=== PATIENT | male | born 1970 | race Hispanic/Latino ===

== ENCOUNTER 2022-07-11 15:52 | Emergency (ER) | payer SELFPAY ==
[2022-07-11 16:38] LABS: Absolute Lymphocytes (CBC) 0.7 K/uL (0.7-4.9); Hematocrit 43.8 % (39.6-49.0); Lymphocytes % 8.5 % (15.3-44.8); MCV 98.7 fL (80-100); MPV 7.9 fL (7.6-11.3); RBC Red Blood Cell Count 4.44 M/uL (4.33-5.43)
[2022-07-11 17:17] LABS: Albumin 3.8 g/dL (3.4-5.0); Bilirubin Total 0.4 mg/dL (0.2-1.0); Potassium 4.1 mmol/L (3.5-5.1); Protein, Total 7.6 g/dL (6.4-8.2)
--- NOTE | 2022-07-11 17:27 | RAD REPORT ---
EXAM DESCRIPTION: CT - Head C Spine Cap Etelvina Montez - 07/11/2022 5:08 pm CLINICAL HISTORY: Head and neck injury with chest and abdominal pain status post fall. Head and neck pain . TECHNIQUE: Computed axial tomography of the head and cervical spine was obtained Computed axial tomography of the chest, abdomen and pelvis was obtained. 100 cc Isovue-300 was given intravenously coronal and sagittal reconstruction was performed. All CT scans are performed using dose optimization technique as appropriate and may include automated exposure control or mA/KV adjustment according to patient size. COMPARISON: none FINDINGS: An intracranial bleed is not seen. The ventricles are normal in caliber. An extra-axial fl uid collection is not noted. Fluid within the sinuses is not seen A cervical fracture is not seen. No dislocation is seen. A mediastinal hematoma is not noted. A pleural effusion is not present. A lung contusion is not seen. The liver, spleen, pancreas, adrenals, kidneys and bladder do not demonstrate an acute traumatic inju ry IMPRESSION: No acute intracranial abnormality is seen A cervical fracture is not visualized. If the patient continues have symptoms to suggest intracranial /spinal cord pathology then MRI would be recommended. No acute traumatic injury involving the chest, abdomen or pelvis is seen.
[2022-07-11] MEDS ORDERED: MORPHINE 4 MG/ML SYR ONE (17:34)
[2022-07-11] MEDS ORDERED: ONDANSETRON 4 MG/2 ML VIAL ONE (17:34)
--- NOTE | 2022-07-11 17:52 | ER ---
Nurse's Notes [facility] Name: Yaniv Bolden Age: 51 yrs Sex: Male : 1970 Arrival Date: 07/11/2022 Time: 15:56 Bed 19 Private MD: Diagnosis: Fall from ladder;Displaced comminuted fracture of shaft of right femur Presentation: 07/11 15:56 Chief complaint: EMS states: toned out to construction site for 10 ft fall. Pt landed ld1 on feet. Upon arrival to scene EMS reports deformity to right femur - traction completed at scene. Pt c/o pain to right leg. Denies hitting head, no LOC. Care prior to arrival: Cervical collar in place. Placed on backboard. Splint applied. Medication(s) given: zofran 4 mg, Fentanyl 100 IV initiated. 20 GA, in the right hand. Mechanism of Injury: Fall 10 feet up approximately 10 feet. Trauma event details: Injury occurred in the [facility]. 15:56 Acuity: GIORGI 2 ld1 15:56 Method Of Arrival: EMS: [facility] ld1 20:51 Ebola Screen: No symptoms or risks identified at this time. Initial Sepsis Screen: Does aa9 the patient meet any 2 criteria? No. Patient's initial sepsis screen is negative. Does the patient have a suspected source of infection? No. Patient's initial sepsis screen is negative. Risk Assessment: Do you want to hurt yourself or someone else? Patient reports no desire to harm self or others. Onset of symptoms was July 11, 2022. Trauma Activation: Physician: ED Physician; Name: ; Notified At: 15:45; Arrived At: Physician: General Surgeon; Name: ; Notified At: 15:45; Arrived At: Physician: Radiology; Name: ; Notified At: 15:45; Arrived At: Physician: Respiratory; Name: ; Notified At: 15:45; Arrived At: Physician: Lab; Name: ; Notified At: 15:45; Arrived At: Historical: - Allergies: 16:06 No Known Allergies; ld1 - Home Meds: 16:06 None [Active]; ld1 - PMHx: 16:06 None; ld1 - PSHx: 16:06 None; ld1 - Immunization history: Last tetanus immunization: unknown. - Social history:: Smoking status: Patient denies any tobacco usage or history of. Patient uses alcohol, but reports only rare drinking. - Family history:: not pertinent. Screenin:06 Abuse screen: Denies threats or abuse. Denies injuries from another. Tuberculosis ld1 screening: No symptoms or risk factors identified. 16:09 [facility] ED Fall Risk Assessment (Adult) History of falling in the last 3 months, ld1 including since admission No falls in past 3 months (0 pts). Nutritional screening: No deficits noted. Primary Survey: 16:06 NO uncontrolled hemorrhage observed. Breathing/Chest: Spontaneous respiratory effort, ld1 equal unlabored respirations, breath sounds clear bilaterally, regular pattern, symmetrical chest rise and fall. Circulation: No external hemorrhage present. Regular and strong central pulse, skin warm/dry/normal color. Disability Client is alert. Exposure/Environment: All clothing and personal items were removed. Forensic evidence collection is not deemed to be indicated at this time. Items placed in patient belonging bag. Reassessment Breathing: Spontaneous respiratory effort, equal unlabored respirations, breath sounds clear bilaterally, regular pattern with symmetrical chest rise and fall. Circulation: No external hemorrhage noted. Regular and strong central pulse, skin warm/dry/normal color. Disability: Alert. Assessment: 15:56 General: Appears in no apparent distress. uncomfortable, Behavior is calm, cooperative, ld1 appropriate for age. Pain: Complains of pain in right leg Pain does not radiate. Pain currently is 9 out of 10 on a pain scale. Quality of pain is described as throbbing, Pain began 1 hour ago. Neuro: Level of Consciousness is awake, alert, obeys commands, Oriented to person, place, time, situation. EENT: No signs and/or symptoms were reported regarding the EENT system. Cardiovascular: Capillary refill < 3 seconds Patient's skin is warm and dry. Rhythm is sinus rhythm. Respiratory: Airway is patent Respiratory effort is even, unlabored. GI: Abdomen is flat, non-distended. : No signs and/or symptoms were reported regarding the genitourinary system. Derm: No signs and/or symptoms reported regarding the dermatologic system. Musculoskeletal: Reports pain in right leg. 17:25 Reassessment: Pt back from CT. Requesting pain medication for right leg. Notified ERP. ld1 See MAR for orders. 18:31 Reassessment: Pt c/o pain to right leg. Notified ERP. See MAR for orders. ld1 18:31 Reassessment: No changes from previously documented assessment. Patient and/or family ld1 updated on plan of care and expected duration. Pain level reassessed. Patient states symptoms have not improved. 19:30 Reassessment: No changes from previously documented assessment. Patient and/or family aa9 updated on plan of care and expected duration. Pain level reassessed. Patient denies pain at this time. 19:30 Respiratory: Airway is patent Respiratory effort is even, unlabored. aa9 20:07 Reassessment: attempted to call report, placed on hold. aa9 20:32 Reassessment: Patient appears in no apparent distress at this time. pt transferred via aa9 stretcher to receiving facility, report provided to JEANNETTE Calderon. Vital Signs: 16:06 BP 140 / 80; Pulse 83; Resp 18; Temp 97.5(O); Pulse Ox 95% on R/A; Weight 77.11 kg; ld1 Height 5 ft. 6 in. (167.64 cm); Pain 9/10; 17:25 BP 126 / 78; Pulse 89; Resp 18; Pulse Ox 92% on 3 lpm NC; Pain 10/10; ld1 18:31 BP 126 / 81; Pulse 89; Resp 18; Pulse Ox 93% on 2 lpm NC; Pain 9/10; ld1 20:06 BP 137 / 82; Pulse 82; Resp 17 S; Pulse Ox 98% on 2 lpm NC; aa9 20:20 BP 140 / 88; Pulse 82; Resp 17 S; Pulse Ox 98% on 2 lpm NC; aa9 16:06 Body Mass Index 27.44 (77.11 kg, 167.64 cm) ld1 [place] Coma Score: 16:06 Eye Response: spontaneous(4). Verbal Response: oriented(5). Motor Response: obeys ld1 commands(6). Total: 15. Trauma Score (Adult): 16:06 Eye Response: spontaneous(1); Verbal Response: oriented(1); Motor Response: obeys ld1 commands(2); Systolic BP: > 89 mm Hg(4); Respiratory Rate: 10 to 29 per min(4); [place] Score: 15; Trauma Score: 12 ED Course: 15:56 Patient arrived in ED. ld1 15:57 Sebastián Douglass MD is Attending Physician. ms3 16:02 Triage completed. ld1 16:06 Patient has correct armband on for positive identification. Placed in gown. Bed in low ld1 position. Call light in reach. Side rails up X2. Oxygen administration via nasal cannula \T\ 2L/min. 16:06 Patient maintains SpO2 saturation greater than 95% on room air. ld1 16:09 Maintain EMS IV. Dressing intact. Good blood return noted. Site clean \T\ dry. Gauge \T\ ld 1 site: 20G Right hand. 16:28 Initial lab(s) drawn, by me, sent to lab. Inserted saline lock: 20 gauge in right em1 antecubital area, using aseptic technique. Blood collected. 17:25 Gladis Lopes RN is Primary Nurse. ld1 18:27 initiated transfer to [facility]. bd 18:30 SARS RAPID Sent. ld1 19:45 patient accepted at [facility] by emory strange. bd 20:16 Attending Physician role handed off by Sebastián Douglass MD sp4 20:16 Escobar Emmanuel MD is Attending Physician. sp4 20:51 Splint/sling/ice applied as appropriate. aa9 20:51 No provider procedures requiring assistance completed. Patient transferred, IV remains aa9 in place. 20:52 Thermoregulation: warm blanket given to patient. aa9 Administered Medications: 17:32 Drug: morphine 4 mg Route: IVP; Infused Over: 4 mins; Site: right hand; ld1 18:31 Follow up: Response: No adverse reaction ld1 17:32 Drug: Zofran (Ondansetron) 4 mg Route: IVP; Site: right hand; ld1 18:31 Follow up: Response: No adverse reaction ld1 18:30 Drug: Dilaudid (HYDROmorphone) 1 mg Route: IVP; Site: right hand; ld1 20:35 Drug: Reglan (metoCLOPramide) 10 mg Route: IVP; Site: right antecubital; aa9 20:40 Drug: Dilaudid (HYDROmorphone) 2 mg Route: IVP; Site: right antecubital; aa9 20:50 Not Given (pt transfered via ambulance ): D5-1/2 NS 1000 ml IV at 125 ml/hr continuous aa9 Medication: 16:09 VIS not applicable for this client. ld1 Intake: 16:06 PO: 50ml (Water); Total: 50ml. ld1 Outcome: 17:51 ER care complete, transfer ordered by . rt 20:51 Transferred by ground EMS to [facility], Transfer form completed. aa9 20:51 Condition: stable 20:51 Instructed on the need for transfer. 20:53 Patient left the ED. aa9 Signatures: Nathalie Mckenzie Eric em1 Evan Patrick DO DO ms3 Gladis Lopes RN RN ld1 Venita Martinez RN RN aa9 Sebastián Douglass MD MD rt Escobar Emmanuel MD MD sp4
--- NOTE | 2022-07-11 17:52 | EDPHYS ---
Physician Documentation [facility] Name: Yaniv Bolden Age: 51 yrs Sex: Male : 1970 Arrival Date: 07/11/2022 Time: 15:56 Bed 19 Private MD: ED Physician Escobar Emmanuel HPI: 07/11 16:45 This 51 yrs old Male presents to ER via EMS with complaints of Fall Injury. rt 16:45 Patient presents to the ED with a fall of about 10 foot off of a ladder, landing onto rt his right foot. EMS reported that the patient had a midshaft femur fracture. Patient complains of pain only to the thigh, denies any knee, ankle pain. Denies any back pain, other acute complaints. He denies hitting his head or having loss of consciousness. Patient denies other acute complaints at this time, pain is aching nature, nonradiating, no other aggravating leaving factors. Symptoms are moderate severity. Patient received 100 mcg of fentanyl which significantly proved his pain.. Historical: - Allergies: 16:06 No Known Allergies; ld1 - Home Meds: 16:06 None [Active]; ld1 - PMHx: 16:06 None; ld1 - PSHx: 16:06 None; ld1 - Immunization history: Last tetanus immunization: unknown. - Social history:: Smoking status: Patient denies any tobacco usage or history of. Patient uses alcohol, but reports only rare drinking. - Family history:: not pertinent. ROS: 16:45 Constitutional: Negative for fever, chills, and weight loss, Neck: Negative for injury, rt pain, and swelling, Cardiovascular: Negative for chest pain, palpitations, and edema, Respiratory: Negative for shortness of breath, cough, wheezing, and pleuritic chest pain, Abdomen/GI: Negative for abdominal pain, nausea, vomiting, diarrhea, and constipation, Back: Negative for injury and pain, Skin: Negative for injury, rash, and discoloration, Neuro: Negative for headache, weakness, numbness, tingling, and seizure, Psych: Negative for depression, anxiety, suicide ideation, homicidal ideation, and hallucinations. 16:45 MS/extremity: Positive for injury or acute deformity, Negative for laceration. Exam: 16:45 Constitutional: This is a well developed, well nourished patient who is awake, alert, rt and in no acute distress. Head/Face: Normocephalic, atraumatic. Neck: Trachea midline, no thyromegaly or masses palpated, and no cervical lymphadenopathy. Supple, full range of motion without nuchal rigidity, or vertebral point tenderness. No Meningismus. Chest/axilla: Normal chest wall appearance and motion. Nontender with no deformity. No lesions are appreciated. Cardiovascular: Regular rate and rhythm with a normal S1 and S2. No gallops, murmurs, or rubs. Normal PMI, no JVD. No pulse deficits. Respiratory: Lungs have equal breath sounds bilaterally, clear to auscultation and percussion. No rales, rhonchi or wheezes noted. No increased work of breathing, no retractions or nasal flaring. Abdomen/GI: Soft, non-tender, with normal bowel sounds. No distension or tympany. No guarding or rebound. No evidence of tenderness throughout. Skin: Warm, dry with normal turgor. Normal color with no rashes, no lesions, and no evidence of cellulitis. Neuro: Awake and alert, GCS 15, oriented to person, place, time, and situation. Cranial nerves II-XII grossly intact. Motor strength 5/5 in all extremities. Sensory grossly intact. Cerebellar exam normal. Normal gait. Psych: Awake, alert, with orientation to person, place and time. Behavior, mood, and affect are within normal limits. 16:45 Musculoskeletal/extremity: Tenderness and swelling to the right thigh, pulses, motor, sensation intact, patient is placed in a traction splint.. Vital Signs: 16:06 BP 140 / 80; Pulse 83; Resp 18; Temp 97.5(O); Pulse Ox 95% on R/A; Weight 77.11 kg; ld1 Height 5 ft. 6 in. (167.64 cm); Pain 9/10; 17:25 BP 126 / 78; Pulse 89; Resp 18; Pulse Ox 92% on 3 lpm NC; Pain 10/10; ld1 18:31 BP 126 / 81; Pulse 89; Resp 18; Pulse Ox 93% on 2 lpm NC; Pain 9/10; ld1 20:06 BP 137 / 82; Pulse 82; Resp 17 S; Pulse Ox 98% on 2 lpm NC; aa9 20:20 BP 140 / 88; Pulse 82; Resp 17 S; Pulse Ox 98% on 2 lpm NC; aa9 16:06 Body Mass Index 27.44 (77.11 kg, 167.64 cm) ld1 [place] Coma Score: 16:06 Eye Response: spontaneous(4). Verbal Response: oriented(5). Motor Response: obeys ld1 commands(6). Total: 15. Trauma Score (Adult): 16:06 Eye Response: spontaneous(1); Verbal Response: oriented(1); Motor Response: obeys ld1 commands(2); Systolic BP: > 89 mm Hg(4); Respiratory Rate: 10 to 29 per min(4); [place] Score: 15; Trauma Score: 12 MDM: 15:59 Patient medically screened. rt 07/11 16:00 Order name: CBC with Diff rt 07/11 16:00 Order name: CMP rt 07/11 16:00 Order name: CT Traumagram (Head C Spine CAP W Con) rt 07/11 16:00 Order name: Femur Right XRAY rt 07/11 16:00 Order name: Knee Right 3 View XRAY rt 07/11 16:00 Order name: Ankle Right W Comparison XRAY rt 07/11 16:43 Order name: CBC with Automated Diff; Complete Time: 17:28 EDMS 07/11 17:18 Order name: Comprehensive Metabolic Panel; Complete Time: 17:28 EDMS 07/11 17:28 Order name: CT; Complete Time: 17:28 EDMS 07/11 17:32 Order name: CREATININE WHOLE BLOOD; Complete Time: 17:51 EDMS 07/11 17:51 Order name: SARS RAPID rt 07/11 18:28 Order name: RAD; Complete Time: 18:36 EDMS 07/11 18:51 Order name: SARS-COV-2 Antigen Rapid; Complete Time: 20:26 EDMS 07/11 19:20 Order name: RAD; Complete Time: 20:26 EDMS Administered Medications: 17:32 Drug: morphine 4 mg Route: IVP; Infused Over: 4 mins; Site: right hand; ld1 18:31 Follow up: Response: No adverse reaction ld1 17:32 Drug: Zofran (Ondansetron) 4 mg Route: IVP; Site: right hand; ld1 18:31 Follow up: Response: No adverse reaction ld1 18:30 Drug: Dilaudid (HYDROmorphone) 1 mg Route: IVP; Site: right hand; ld1 20:35 Drug: Reglan (metoCLOPramide) 10 mg Route: IVP; Site: right antecubital; aa9 20:40 Drug: Dilaudid (HYDROmorphone) 2 mg Route: IVP; Site: right antecubital; aa9 20:50 Not Given (pt transfered via ambulance ): D5-1/2 NS 1000 ml IV at 125 ml/hr continuous aa9 Disposition Summary: 07/11/22 17:51 Transfer Ordered Transfer Location: [facility] rt Reason: Higher level of care rt Condition: Stable rt Problem: new rt Symptoms: have improved rt Accepting Physician: (07/11/22 20:53) aa9 Diagnosis - Fall from ladder rt - Displaced comminuted fracture of shaft of right femur rt Forms: - Medication Reconciliation Form rt - SBAR form rt Signatures: Dispatcher [employer] EDGladis Abbott RN RN ld1 Venita Martinez RN RN aa9 Sebastián Douglass MD MD rt Escobar Emmanuel MD MD sp4 Corrections: (The following items were deleted from the chart) 20:53 17:51 MD rt aa9
--- NOTE | 2022-07-11 18:27 | RAD REPORT ---
EXAM DESCRIPTION: RAD - Femur Right - 07/11/2022 6:02 pm CLINICAL HISTORY: Leg pain FINDINGS: Comminuted markedly displaced fracture mid right femur Two screws are either within medial femoral condyle or patella. This is incompletely evaluated on thi s exam. Fracture involves superior patella. Fracture fragments by about 7 millimeters
[2022-07-11] MEDS ORDERED: HYDROMORPHONE HCL 1 MG/ML INJ ONE (18:33)
[2022-07-11 18:51] LABS: SARS-CoV-2 Antigen Rapid Res Negative (Negative)
--- NOTE | 2022-07-11 19:20 | RAD REPORT ---
EXAM DESCRIPTION: RAD - Ankle Right W Comparison - 07/11/2022 6:02 pm CLINICAL HISTORY: Ankle pain FINDINGS: Limited evaluation of pancreas secondary to overlying orthopedic hardware. No gross fracture visualized. The space between the anterior tibia and talus appears widened. It is uncertain if this is secondary to positioning or ligamentous injury. Followup imaging x-rays recommended
[2022-07-11] MEDS ORDERED: METOCLOPRAMIDE 10 MG/2mL INJ ONE (20:33)
[2022-07-11] MEDS ORDERED: HYDROMORPHONE HCL 2 MG/ML inj ONE (20:34)
[2022-07-11 21:03] VITALS: TEMP 97.5
[2022-07-11 21:07] VITALS: O2SAT 98
[2022-07-11 21:08] VITALS: BP 140/88
== END 2022-07-11 20:53 | disposition short-term general hospital (02) ==
LOC: ER 15:52
PROC: 2W3QX1Z Immobilization of Right Lower Leg using Splint (ICD-10-PCS; principal; 2022-07-11)
DX: S72.351A Displaced comminuted fracture of shaft of right femur, initial encounter for closed fracture (principal); W11.XXXA Fall on and from ladder, initial encounter
CPT/HCPCS: 36415; 70450; 71260; 72125; 74177; 80053; 82565; 85025; 87811; 99285; J1170; J2405; J2765; Q9967